=== PATIENT | female | born 1960 | race Caucasian/White ===

== ENCOUNTER 2017-09-28 20:53 | Observation (INO) ==
--- NOTE | 2017-09-28 20:57 | Emergency Department Note ---
Disposition Clinical Impression: Pneumonia Disposition: Admitted As Inpatient Condition: Good Referrals: Stacy Cruz, [facility] [Primary Care Provider] - Time of Disposition: 22:40 (dr Hernandez for dr Brown ar [facility]) SOB HPI - General Stated Complaint: hard to breath pain in R lung front and back Time Seen by Provider: 09/28/17 21:21 Source: patient Mode of arrival: ambulatory Limitations: no limitations Nursing Notes Reviewed: Yes Vital Signs Reviewed: Yes - History of Present Illness Pt Subjective Complaint: shortness of breath, cough, pain with inspiration, chest pain Onset (ago): day(s) (3) Context: recent illness Severity: severe Consistency/Duration: constant, gradually worsening Improves with: nothing Worsens with: exertion, movement, coughing, inspiration Known history of: COPD Associated symptoms: Reports: chest pain, pain with inspiration, fever, cough, wheezing, sputum production. Denies: orthopnea, lower extremity pain, polyuria , polydipsia, parasthesias, palpitations, hemoptysis, diaphoresis, nausea/ vomiting, syncope, abdominal pain Treatment prior to arrival: bronchodilator Cough present: Yes Cough Description: Involuntary, Productive, Strong, Rattling Cough Frequency: Intermittent Sputum production: Yes Sputum Amount: Small Sputum Color: Green - Related Data Home Medications Medication Instructions Recorded Confirmed Aspirin Enteric Coated [Aspirin EC] 81 mg PO DAILY 12/30/14 09/28/17 Escitalopram [Lexapro] 20 mg PO DAILY 12/30/14 09/28/17 Gabapentin [Neurontin] 1,200 mg PO TID 12/30/14 09/28/17 Rosuvastatin Calcium [Crestor] 10 mg PO HS 12/30/14 09/28/17 Zonisamide [Zonegran] 100 mg PO QAM 12/30/14 09/28/17 Zonisamide [Zonegran] 150 mg PO HS 12/30/14 09/28/17 risperiDONE [RisperDAL] 1 mg PO HS 12/30/14 09/28/17 Aclidinium [place] [Tudorza 1 puff IH BID 11/17/15 09/28/17 Pressair] Albuterol Sulfate [Ventolin Hfa] 2 puff IH Q4H PRN 11/17/15 09/28/17 Diclofenac Sodium [Voltaren] 1 appl TP QID PRN 11/17/15 09/28/17 Fluticasone/Salmeterol [Advair 1 puff IH BID 11/17/15 09/28/17 500-50 Diskus] Ipratropium/Albuterol Neb [Duoneb] 3 ml IH Q6HR 11/17/15 09/28/17 Lidocaine Patch [Lidoderm 5% patch] 1 patch TP DAILY PRN 11/17/15 09/28/17 Melatonin 10 mg PO HS PRN 11/17/15 09/28/17 Nitroglycerin [Nitrostat] 0.4 mg SL Q5M PRN 11/17/15 09/28/17 metFORMIN [Glucophage] 1,000 mg PO BIDWM 11/17/15 09/28/17 Esomeprazole Magnesium [Nexium] 40 mg PO DAILY 05/10/16 09/28/17 Buspirone HCl [Buspar] 20 mg PO BID 11/07/16 09/28/17 Calcium Polycarbophil [Fibercon] 625 mg PO QID 11/07/16 09/28/17 Docusate [Colace] 100 mg PO TID 11/07/16 09/28/17 Ergocalciferol (VITAMIN D2) 50,000 unit PO MO 11/07/16 09/28/17 [Vitamin D2] Vitamin B Complex [B Complex] 1 each PO DAILY 11/07/16 09/28/17 hydrOXYzine HCl [Hydroxyzine HCl] 50 mg PO TID PRN 11/07/16 09/28/17 Previous Rx's Medication Instructions Recorded Pramipexole Di-HCl [Pramipexole 0.125 mg PO QPM #0 11/09/16 Dihydrochloride] Albuterol Sulfate [Ventolin Hfa] 2 puff IH Q4-6H PRN #1 hfa.aer.ad 07/29/17 PredniSONE [Deltasone] 60 mg PO DAILY #15 tablet 07/29/17 Allergies Allergy/AdvReac Type Severity Reaction Status Date / Time amitriptyline Allergy Anaphylaxis Verified 09/28/17 21:16 ibuprofen Allergy See Verified 09/28/17 21:16 Comments meloxicam Allergy Difficulty Verified 09/28/17 21:16 Breathing methocarbamol [From Robaxin] Allergy Difficulty Verified 09/28/17 21:16 Breathing naproxen Allergy See Verified 09/28/17 21:16 Comments NSAIDS (Non-Steroidal AdvReac See Verified 09/28/17 21:16 Anti-Inflamma Comments sulfamethoxazole AdvReac Hives Verified 09/28/17 21:16 [From Bactrim] Temazepam AdvReac See Verified 09/28/17 21:16 Comments tramadol [From Ultram] AdvReac See Verified 09/28/17 21:16 Comments trimethoprim [From Bactrim] AdvReac Hives Verified 09/28/17 21:16 All systems ED: reviewed and negative except as stated. Review of Systems: As Per HPI Constitutional: Reports: fever. Denies: chills, weakness Eyes: Denies: eye pain, eye discharge ENT ED: Reports: congestion. Denies: ear pain, throat pain Cardiovascular: Reports: chest pain, dyspnea on exertion. Denies: palpitations , paroxysmal nocturnal dyspnea Respiratory: Reports: cough, dyspnea, wheezes, sputum production Gastrointestinal: Denies: abdominal pain, nausea, vomiting Genitourinary: Denies: urgency, dysuria Musculoskeletal: Denies: back pain, neck pain Integumentary: Denies: abrasion Neurological: Denies: headache Psychiatric: Denies: anxiety, depression Endocrine: Denies: fatigue Hematological/Lymphatic: Denies: easy bleeding Allergic/Immunologic: Denies: facial swelling Past Medical History - Past Medical History Attestation: Yes The following information was validated with the patient. 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 - Social History Smoking Status: Current every day smoker Smokeless Tobacco Status: No Alcohol use: Reports: none Drug use: Reports: none Physical Exam - General Limitations: no limitations General appearance: alert, in no apparent distress, anxious - Head Head exam: atraumatic, normocephalic, normal inspection - Eye Eye exam: Present: normal appearance, PERRL, EOMI - ENT ENT exam: normal exam, normal oropharynx, mucous membranes moist, TM's normal bilaterally, normal external ear exam - Neck Neck exam: Present: normal inspection, full ROM, trachea midline - Chest Chest inspection: Present: normal inspection, symmetric chest wall rise. Absent : tenderness - Respiratory Respiratory exam: Present: wheezes, prolonged expiratory phase, other (Course rhonchi large amount of phlegm) - Cardiovascular Cardiovascular exam: Present: regular rate, normal rhythm, normal heart sounds - Abdominal Exam Abdominal exam: Present: soft, Non-Tender, normal bowel sounds. Absent: mass, pulsatile mass - Expanded Upper Extremity Exam Shoulder exam: Present: normal inspection, full ROM Arm exam: Present: normal inspection, full ROM Elbow exam: Present: normal inspection, full ROM Forearm/Wrist exam: Present: normal inspection, full ROM Hand exam: Present: normal inspection, full ROM Vascular exam: Normal: capillary refill, radial pulse - Expanded Lower Extremity Exam Hip/Pelvis exam: Present: normal inspection, full ROM Upper leg exam: Present: normal inspection, full ROM Knee exam: Present: normal inspection, full ROM Lower leg exam: Present: normal inspection, full ROM Ankle exam: Present: normal inspection, full ROM Foot/toe exam: Present: normal inspection, full ROM Neurovascular/Tendon exam: Present: normal capillary refill, normal fine/light touch. Absent: motor deficit, sensory deficit, tendon deficit Gait: observed and normal - Back Exam Back exam: Present: normal inspection, full ROM. Absent: muscle spasm - Neurological Exam Neurological exam: Present: alert, oriented X3, CN II-XII intact, normal gait - Psychiatric Psychiatric exam: Present: normal affect, normal mood - Skin Skin exam: Present: warm, dry, intact, normal color Course Course Narrative: Patient was seen and examined laboratory data was ordered blood cultures and lactic acid chest x-ray EKG as well as an aerosol treatment patient did seem to bringing up a lot more green thick tenacious phlegm after the aerosol treatment patient was monitored patient did not have a D satting but continued to cough up large amounts of copious phlegm days a comes to the point of choking at times on the thickness and tenacity of it as result patient was admitted for observation due to the fact chest x-ray shows a early right lower lobe pneumonia and the patient seemed to be very comfortable with this will repeat CBC in the morning and make sure that her white count is coming down and see how she is feeling at that time we will continue with aerosol treatments shant spoke to Dr. Tapia who agreed Vital Signs Temperature 98 F 09/28/17 21:12 Pulse Rate 83 09/28/17 21:12 Respiratory Rate 18 09/28/17 21:12 Blood Pressure 119/73 09/28/17 21:12 O2 Sat by Pulse Oximetry 90 09/28/17 21:12 Temperature 98 F 09/28/17 21:12 Pulse Rate 83 09/28/17 21:12 Respiratory Rate 18 09/28/17 21:12 Blood Pressure 119/73 09/28/17 21:12 O2 Sat by Pulse Oximetry 90 09/28/17 21:12 Oxygen Delivery Oxygen Delivery Room Air Shortness of Breath/Dyspnea - Differential Diagnosis Likely: acute exacerbation of chronic obstructive airways disease, pneumonia - Medical Records Medical records reviewed: Yes I reviewed the patient's medical records. - Lab Data Lab results reviewed: Yes I reviewed the patient's lab results. Result diagrams: 09/28/17 21:45 09/28/17 21:45 Lab Results 09/28/17 09/28/17 09/28/17 Range/Units 21:45 21:45 21:45 WBC 12.1 H (4.3-11.1) K/mcL RBC 4.58 (3.82-4.97) M/mcL Hgb 14.2 (11.5-15.4) g/dL Hct 43.1 (35.3-44.9) % MCV 94.1 (83.0-100.0) fL MCH 31.0 (28.0-33.3) pg MCHC 32.9 (31.6-35.5) g/dL RDW 13.2 (11.5-14.5) % Plt Count 232 (140-400) K/mcL MPV 9.3 L (9.4-12.4) fL Immature Gran % 0.2 (0-4) % Seg Neutrophils % 64.4 % Lymphocytes % 23.0 % Monocytes % 9.5 % Eosinophils % 2.3 % Basophils % 0.6 % Neutrophils # 7.8 (1.6-8.9) K/mcL Lymphocytes # 2.8 (0.6-4.6) K/mcL Monocytes # 1.2 (0.0-1.3) K/mcL Eosinophils # 0.3 (0.0-0.6) K/mcL Basophils # 0.1 (0.0-0.2) K/mcL PT 11.6 (9.4-12.1) Seconds INR 1.0 APTT 26.5 (26.0-36.0) Seconds Sodium 137 (136-145) mEq/L Potassium 4.2 (3.5-5.1) mEq/L Chloride 104 (98-107) mEq/L Carbon Dioxide 29 (23-29) mEq/L BUN 11 (6-20) mg/dL Creatinine 0.77 (0.60-1.20) mg/dL Est GFR ( Amer) > 60 (> 60) Est GFR (Non-Af Amer) > 60 (> 60) BUN/Creatinine Ratio 14 (6-26) Glucose 116 H (70-105) mg/dL Calculated Osmolality 284 (280-300) Lactic Acid (0.5-2.2) mmol/L Calcium 9.2 (8.6-10.3) mg/dL Troponin I < 0.03 (< 0.04) ng/mL 09/28/17 Range/Units 21:45 WBC (4.3-11.1) K/mcL RBC (3.82-4.97) M/mcL Hgb (11.5-15.4) g/dL Hct (35.3-44.9) % MCV (83.0-100.0) fL MCH (28.0-33.3) pg MCHC (31.6-35.5) g/dL RDW (11.5-14.5) % Plt Count (140-400) K/mcL MPV (9.4-12.4) fL Immature Gran % (0-4) % Seg Neutrophils % % Lymphocytes % % Monocytes % % Eosinophils % % Basophils % % Neutrophils # (1.6-8.9) K/mcL Lymphocytes # (0.6-4.6) K/mcL Monocytes # (0.0-1.3) K/mcL Eosinophils # (0.0-0.6) K/mcL Basophils # (0.0-0.2) K/mcL PT (9.4-12.1) Seconds INR APTT (26.0-36.0) Seconds Sodium (136-145) mEq/L Potassium (3.5-5.1) mEq/L Chloride (98-107) mEq/L Carbon Dioxide (23-29) mEq/L BUN (6-20) mg/dL Creatinine (0.60-1.20) mg/dL Est GFR ( Amer) (> 60) Est GFR (Non-Af Amer) (> 60) BUN/Creatinine Ratio (6-26) Glucose (70-105) mg/dL Calculated Osmolality (280-300) Lactic Acid 1.0 (0.5-2.2) mmol/L Calcium (8.6-10.3) mg/dL Troponin I (< 0.04) ng/mL - Radiology Data Radiology results reviewed: Yes I reviewed the patient's radiology results. ITS Impressions Chest X-Ray 09/28/17 21:20 IMPRESSION: Nonspecific right infrahilar opacity may represent atelectasis with pneumonia felt to be less likely but not excluded. D/ / 09/28/2017 22:25:22 Stephen Ireland MD / delia Interpreting Provider: Stephen Ireland MD - EKG Data EKG attestation: Yes I reviewed and interpreted this EKG. EKG results narrative: Sinus rhythm nonspecific T-wave [place] 182 QRS 80 QT 326 axis -21 with a heart rate of 82 Critical Care Time Critical Care Time: No
[2017-09-28] MEDS ORDERED: *HR* HYDROcodone/Acet 5/325 mg TABLET PO ONE (21:01)
[2017-09-28] MEDS ORDERED: Ipratropium/Albuterol Neb 3 ML IH ONE (21:20)
[2017-09-28] MEDS ORDERED: Azithromycin 500 MG in D5% in Water 250 ML IVPB ONE (21:20)
[2017-09-28] MEDS ORDERED: 0.9 % Sodium Chloride 1,000 ML IVC SCH (21:30)
[2017-09-28 21:52] LABS: Basophils # 0.1 K/mcL (0.0-0.2); Basophils % 0.6 %; Eosinophils # 0.3 K/mcL (0.0-0.6); Eosinophils % 2.3 %; Hematocrit 43.1 % (35.3-44.9); Hemoglobin 14.2 g/dL (11.5-15.4); Immature Granulocytes % 0.2 % (0-4); Lymphocytes # 2.8 K/mcL (0.6-4.6); Mean Corpuscular HGB Conc 32.9 g/dL (31.6-35.5); Mean Corpuscular Volume 94.1 fL (83.0-100.0); Mean Platelet Volume 9.3 fL (9.4-12.4); Monocytes # 1.2 K/mcL (0.0-1.3); Monocytes % 9.5 %; Neutrophils # 7.8 K/mcL (1.6-8.9); Platelet Count 232 K/mcL (140-400); Red Blood Count 4.58 M/mcL (3.82-4.97); Red Cell Distribution Width 13.2 % (11.5-14.5); Segmented Neutrophils % 64.4 %
[2017-09-28 21:57] LABS: Prothrombin Time 11.6 Seconds (9.4-12.1)
[2017-09-28 22:00] LABS: Activated Partial Thrombo Time 26.5 Seconds (26.0-36.0)
[2017-09-28 22:07] LABS: Troponin I < 0.03 ng/mL (< 0.04)
[2017-09-28 22:08] LABS: BUN/Creatinine Ratio 14 (6-26); Blood Urea Nitrogen 11 mg/dL (6-20); Calcium 9.2 mg/dL (8.6-10.3); Carbon Dioxide 29 mEq/L (23-29); Chloride 104 mEq/L (98-107); Glucose 116 mg/dL (70-105); Osmolality,Calculated 284 (280-300); Potassium 4.2 mEq/L (3.5-5.1); Sodium 137 mEq/L (136-145); eGFR For Non-African Americans > 60 (> 60)
[2017-09-28] MEDS ORDERED: Dextrose Gel 15 GM/37.5 ML TUBE PO PRN ×2 (23:22)
[2017-09-28] MEDS ORDERED: *HR* Dextrose 50 % in Water (Syg) 50 ML SYRINGE IVP PRN (23:22)
[2017-09-28] MEDS ORDERED: Melatonin 3 MG TABLET PO PRN (23:22)
[2017-09-28] MEDS ORDERED: Naloxone 0.4 MG/ML INJ IVP PRN (23:22)
[2017-09-28] MEDS ORDERED: (Diclofenac Sodium [Voltaren] 1 APPL) TP PRN (23:22)
[2017-09-28] MEDS ORDERED: Nitroglycerin 0.4 MG TAB.SUBL SL PRN (23:22)
[2017-09-28] MEDS ORDERED: D5% in Water 1,000 ML IVC PRN (23:22)
[2017-09-28] MEDS ORDERED: Acetaminophen 325 MG TABLET PO PRN (23:22)
[2017-09-28] MEDS ORDERED: hydrOXYzine pamoate 25 MG CAPSULE PO PRN (23:22)
[2017-09-28] MEDS: 0.9 % Sodium Chloride 1,000 ML IVC SCH (23:45)
[2017-09-29] MEDS: Ipratropium/Albuterol Neb 3 ML IH SCH ×4 (01:05→17:40)
[2017-09-29] MEDS: 0.9 % Sodium Chloride 1,000 ML IVC SCH ×2 (07:05→15:37)
[2017-09-29] MEDS: *HR* Enoxaparin 40 MG/0.4 ML SYRINGE SQ SCH (07:05)
--- NOTE | 2017-09-29 08:30 | Internal Med History&Physical ---
Date of Encounter: 09/29/17 Time of Encounter: 08:30 Assessment and Plan (1) Pneumonia Current visit: Yes Status: Acute She is here for IV antibiotics he is on Rocephin and Zithromax will continue duo nebs oxygen. Qualifiers: Pneumonia type: due to unspecified organism Laterality: right Lung location: lower lobe of lung Qualified Code(s): J18.1 - Lobar pneumonia, unspecified organism (2) COPD exacerbation Current visit: Yes Status: Acute Added Solu-Medrol continue duo nebs continue oxygen wean as tolerated. Pretty- harsh and loud rattly cough she is wheezing with minimal exertion she is not ready to discharge home (3) Diabetes mellitus Current visit: No Status: Chronic Qualifiers: Diabetes mellitus type: type 2 Diabetes mellitus terminal gauger insulin use: without penitentiary use Diabetes mellitus complication status: without complication Qualified Code(s): E11.9 - Type 2 diabetes mellitus without complications (4) Fibromyalgia Current visit: No Status: Chronic Will continue homerun. We will continue to follow she did get some [place] continue to follow this on per chart review she has just been discontinued off her oxycodone for pain management due to the fact that her drug screen was going to be positive for hydrocodone and will not send home with any further medication. (5) Seizure disorder Current visit: Yes Status: Chronic Will continue home medication she has 2 shunts placed on she says she has not had any seizures in quite some time. Continue to follow (6) Hyperlipidemia Current visit: Yes Status: Chronic Will continue home medication. (7) Hypertension Current visit: Yes Status: Chronic Will continue home medication Qualifiers: Hypertension type: essential hypertension Qualified Code(s): I10 - Essential (primary) hypertension (8) Atypical chest pain Current visit: Yes Status: Acute Negative she is on telemetry she most likely will require outpatient stress test given the fact that she has had a history of cocaine abuse. That she is a diabetic. Hypertension hyperlipidemia and a smoker (9) DVT prophylaxis Current visit: Yes Status: Acute She is on Lovenox for this Internal Medicine - H&P: HPI Chief complaint: sob and lungs hurt Admitted From: Home Plans for Post Hospital Care: Home History of present illness: Ms. Conde is a 57 year old female Past medical history of COPD presents to the emergency room after she had several day onset of cough with thick green sputum wheezing shortness of breath and her lung started hurting and started on the right side and cut and wrapped around her back she was struggling to breathe she came into the emergency room she had dual nebs with some improvement but she still had thick yellow sputum. having significant shortness of breath. Her chest x-ray showed infiltrate she was brought in for pneumonia she was given Zithromax and Rocephin she feels a little bit better but still has rattling and coughing. She still is short of breath she is having difficulty up to the restroom. She is not normally on oxygen at home. She is short of breath with exertion she is diaphoretic with exertion. She did have some diarrhea. Past Med Surg Social Fam HX - Past Medical History Medical history: asthma, cancer (Cervical), COPD, CVA, diabetes, fibromyalgia, GERD, hyperlipidemia, hypertension, seizures, TIA, other (Pseudotumor, seizure disorder history of drug addiction nephrolithiasis irritable bowel pseudoseizures, cervical disc disease) Additional medical history: cervical cancer Psychiatric history: anxiety, depression, prior suicide attempt - Past Surgical History Surgical History: cholecystectomy, herniorrhaphy (Left inguinal and umbilical), hysterectomy, knee replacement, orthopedic, other, ALBINA/BSO, other (2 brain shunts him a hemorrhoid, lumbar laminectomy, tubal ligation) Additional surgical history: brain sugery r/t tumors with shunt placement - Social History Smoking Status: Current every day smoker Smokeless Tobacco Status: No Alcohol use: none (She denies but her chart has documentation of a history of alcohol abuse) Drug use: none (But her chart states that she has a history of cocaine marijuana addiction and that she started commit suicide. And alcohol abuse.) - Family History Mother Living Status: Cause of : brain aneurysm, Hx Family Cardiac Disorders: Yes Hx Family Cancer: Yes Hx Family Endocrine Disorder: Yes (DM, thyroid) Hx Family Neuromuscular Disorders: Yes (cva) Father Living Status: Hx Family Respiratory Disorders: Yes (COPD) Hx Family Cancer: Yes (Prostate CA) Hx Family GI Disorders: Yes (: colonPolyps) Hx Family Endocrine Disorder: Yes (DM) Daughter Hx Family Medical Disorders: Yes (Von Willebrand's disease) Internal Medicine - H&P: Meds Aspirin Enteric Coated [Aspirin EC] 81 mg PO DAILY 12/30/14 [History] Escitalopram [Lexapro] 20 mg PO DAILY 12/30/14 [History] Gabapentin [Neurontin] 1,200 mg PO TID 12/30/14 [History] Rosuvastatin Calcium [Crestor] 10 mg PO HS 12/30/14 [History] Zonisamide [Zonegran] 100 mg PO QAM 12/30/14 [History] Zonisamide [Zonegran] 150 mg PO HS 12/30/14 [History] risperiDONE [RisperDAL] 1 mg PO HS 12/30/14 [History] Aclidinium [place] [Tudorza Pressair] 1 puff IH BID 11/17/15 [History] Albuterol Sulfate [Ventolin Hfa] 2 puff IH Q4H PRN 11/17/15 [History] Diclofenac Sodium [Voltaren] 1 appl TP QID PRN 11/17/15 [History] Fluticasone/Salmeterol [Advair 500-50 Diskus] 1 puff IH BID 11/17/15 [History] Ipratropium/Albuterol Neb [Duoneb] 3 ml IH Q6HR 11/17/15 [History] Lidocaine Patch [Lidoderm 5% patch] 1 patch TP DAILY PRN 11/17/15 [History] Melatonin 10 mg PO HS PRN 11/17/15 [History] Nitroglycerin [Nitrostat] 0.4 mg SL Q5M PRN 11/17/15 [History] metFORMIN [Glucophage] 1,000 mg PO BIDWM 11/17/15 [History] Esomeprazole Magnesium [Nexium] 40 mg PO DAILY 05/10/16 [History] Buspirone HCl [Buspar] 20 mg PO BID 11/07/16 [History] Calcium Polycarbophil [Fibercon] 625 mg PO QID 11/07/16 [History] Docusate [Colace] 100 mg PO TID 11/07/16 [History] Ergocalciferol (VITAMIN D2) [Vitamin D2] 50,000 unit PO MO 11/07/16 [History] Vitamin B Complex [B Complex] 1 each PO DAILY 11/07/16 [History] hydrOXYzine HCl [Hydroxyzine HCl] 50 mg PO TID PRN 11/07/16 [History] Pramipexole Di-HCl [Pramipexole Dihydrochloride] 0.125 mg PO QPM #0 11/09/16 [Rx ] Albuterol Sulfate [Ventolin Hfa] 2 puff IH Q4-6H PRN #1 hfa.aer.ad 07/29/17 [Rx] PredniSONE [Deltasone] 60 mg PO DAILY #15 tablet 07/29/17 [Rx] 3 Allergy/AdvReac Type Severity Reaction Status Date / Time amitriptyline Allergy Anaphylaxis Verified 09/28/17 21:16 ibuprofen Allergy See Verified 09/28/17 21:16 Comments meloxicam Allergy Difficulty Verified 09/28/17 21:16 Breathing methocarbamol [From Robaxin] Allergy Difficulty Verified 09/28/17 21:16 Breathing naproxen Allergy See Verified 09/28/17 21:16 Comments NSAIDS (Non-Steroidal AdvReac See Verified 09/28/17 21:16 Anti-Inflamma Comments sulfamethoxazole AdvReac Hives Verified 09/28/17 21:16 [From Bactrim] Temazepam AdvReac See Verified 09/28/17 21:16 Comments tramadol [From Ultram] AdvReac See Verified 09/28/17 21:16 Comments trimethoprim [From Bactrim] AdvReac Hives Verified 09/28/17 21:16 All Systems PM: A 10-system review of systems was performed and is negative for pertinent findings except as documented above in the HPI. - Constitutional Constitutional: fatigue, no chills, no fever(s), no night sweats, no weight gain - EENT Eyes: no change in vision Nose, mouth and throat: nasal congestion, no sore throat - Cardiovascular Cardiovascular ROS IM: as per HPI, chest pain, dyspnea, no palpitations - Respiratory Respiratory: cough, dyspnea, wheezing, chest congestion, excessive phlegm production, no hemoptysis - Gastrointestinal Gastrointestinal: diarrhea, nausea, no abdominal pain, no constipation, no melena, no vomiting - Genitourinary Genitourinary: no dysuria, no hematuria - Integumentary Integumentary IM: no pruritus, no rash - Neurological Neurological ROS: convulsions (She has not had any seizures for months), headache(s) (Chronic) - Constitutional Vitals: Temp Pulse Resp BP Pulse Ox 98.2 F 75 16 118/79 93 09/29/17 07:33 09/29/17 07:33 09/29/17 07:33 09/29/17 07:33 09/29/17 07:33 General appearance: Present: mild distress (When she was around in bed she has a pretty significant cough.), A&O X 3, obese - Head Head exam: Present: atraumatic - Eye Eye exam: Present: EOMI - Neck Neck exam general surgery: Present: supple, trachea midline. Absent: lymphadenopathy - Expanded Neck Exam Neck exam: Absent: carotid bruit - Respiratory Respiratory exam: Present: decreased breath sounds, prolonged expiratory phase, rales, rhonchi, wheezes - Cardiovascular Cardiovascular exam: Present: RRR, +S2. Absent: +S1, systolic murmur - GI/Abdominal GI/Abdominal exam: Present: normal bowel sounds, soft, no peritoneal signs. Absent: distended, guarding, mass, tenderness - Extremities Exam Extremities exam: Present: normal capillary refill, warm. Absent: pedal edema - Skin Skin exam: Present: dry, rash Internal Med - H&P Results - Labs CBC & Chem 7: 09/29/17 09:00 09/28/17 21:45 Labs: Cardiac Enzymes 09/29/17 Range/Units 03:10 Troponin I < 0.03 (< 0.04) ng/mL
[2017-09-29] MEDS ORDERED: predniSONE 20 MG TABLET PO SCH (09:00)
[2017-09-29] MEDS: TUDORZA PRESSAIR IH SCH ×2 (09:09→22:04)
[2017-09-29] MEDS: *HR* Metformin 500 MG TABLET PO SCH ×2 (09:26→15:44)
[2017-09-29] MEDS: Gabapentin 400 MG CAPSULE PO SCH ×3 (09:26→22:01)
[2017-09-29] MEDS: Aspirin Enteric Coated 81 MG Tablet PO SCH (09:27)
[2017-09-29] MEDS: Vitamin B Complex/Vit C/Vit E 1 EACH TABLET PO SCH (09:27)
[2017-09-29] MEDS: cefTRIAXone 1,000 MG in Water for inj. (sterile) 20 ML 10 ML IVP SCH (09:27)
[2017-09-29] MEDS: Azithromycin 500 MG in D5% in Water 250 ML IVPB SCH (09:27)
[2017-09-29 09:32] LABS: Hematocrit 41.2 % (35.3-44.9); Hemoglobin 13.4 g/dL (11.5-15.4); Mean Corpuscular HGB Conc 32.5 g/dL (31.6-35.5); Mean Corpuscular Hemoglobin 30.6 pg (28.0-33.3); Mean Corpuscular Volume 94.1 fL (83.0-100.0); Mean Platelet Volume 9.6 fL (9.4-12.4); Platelet Count 235 K/mcL (140-400); Red Blood Count 4.38 M/mcL (3.82-4.97); Red Cell Distribution Width 13.2 % (11.5-14.5)
[2017-09-29] MEDS: Budesonide/Formoterol 160/4.5 1 PUFF INH IH SCH ×2 (09:33→22:02)
[2017-09-29] MEDS: Insulin LISPRO 300 UNITS/3 ML VIAL SQ SCH ×3 (09:38→17:48)
--- NOTE | 2017-09-29 15:37 | Electrocardiograph Report ---
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
[2017-09-29] MEDS: methylPREDNISolone 125 MG/2 ML VIAL IVP SCH (17:39)
[2017-09-29] MEDS: *HR* HYDROcodone/Acet 5/325 mg TABLET PO PRN (17:42)
[2017-09-29] MEDS ORDERED: risperiDONE 1 MG TABLET PO SCH (21:00)
[2017-09-30] MEDS: 0.9 % Sodium Chloride 1,000 ML IVC SCH ×3 (00:05→16:28)
[2017-09-30] MEDS: methylPREDNISolone 125 MG/2 ML VIAL IVP SCH (06:01)
[2017-09-30] MEDS: *HR* Enoxaparin 40 MG/0.4 ML SYRINGE SQ SCH (06:02)
[2017-09-30] MEDS: Ipratropium/Albuterol Neb 3 ML IH SCH ×3 (06:03→15:05)
[2017-09-30] MEDS: Insulin LISPRO 300 UNITS/3 ML VIAL SQ SCH ×3 (07:47→16:30)
[2017-09-30] MEDS: Aspirin Enteric Coated 81 MG Tablet PO SCH (09:24)
[2017-09-30] MEDS: *HR* Metformin 500 MG TABLET PO SCH ×2 (09:24→16:30)
[2017-09-30] MEDS: Vitamin B Complex/Vit C/Vit E 1 EACH TABLET PO SCH (09:25)
[2017-09-30] MEDS: Gabapentin 400 MG CAPSULE PO SCH ×2 (09:26→15:04)
[2017-09-30] MEDS: *HR* HYDROcodone/Acet 5/325 mg TABLET PO PRN (09:34)
[2017-09-30] MEDS: Azithromycin 500 MG in D5% in Water 250 ML IVPB SCH (09:35)
--- NOTE | 2017-09-30 11:03 | Internal Med Progress Note ---
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 insulin use: without terminal operations manager use Diabetes mellitus complication status: without complication Qualified Code(s): E11.9 - Type 2 diabetes mellitus without complications (4) Fibromyalgia Current Visit: No Status: Chronic (5) Seizure disorder Current Visit: Yes Status: Chronic (6) Hyperlipidemia Current Visit: Yes Status: Chronic (7) Hypertension Current Visit: Yes Status: Chronic Qualifiers: Hypertension type: essential hypertension Qualified Code(s): I10 - Essential (primary) hypertension (8) Atypical chest pain Current Visit: Yes Status: Acute (9) DVT prophylaxis Current Visit: Yes Status: Acute - Constitutional Vitals: Temp Pulse Resp BP Pulse Ox 97.6 F 77 14 129/65 97 09/30/17 07:46 09/30/17 07:46 09/30/17 07:46 09/30/17 07:46 09/30/17 07:46 General appearance: Present: mild distress (When she was around in bed she has a pretty significant cough.), A&O X 3, obese Internal Medicine: Result - Labs CBC & Chem 7: 09/29/17 09:00 09/28/17 21:45 - ABG Interpretation ABG results: PT/INR, D-dimer PT 11.6 Seconds (9.4-12.1) 09/28/17 21:45 Consult Discharge Plan - Plan
[2017-09-30] MEDS: TUDORZA PRESSAIR IH SCH (12:14)
[2017-09-30] MEDS: Budesonide/Formoterol 160/4.5 1 PUFF INH IH SCH (12:43)
[2017-09-30] MEDS: cefTRIAXone 1,000 MG in Water for inj. (sterile) 20 ML 10 ML IVP SCH (12:44)
--- NOTE | 2017-09-30 16:30 | Discharge Summary ---
- NOTES TO OUTPATIENT PROVIDER Notes to Outpatient Provider: she needs an outpatient stress test. the PA process has been started at the office Date of Encounter: 09/30/17 Time of Encounter: 10:50 - Discharge Diagnosis (1) Pneumonia Priority: Primary Status: Acute Comments: She was initially on oxygen she was weaned to room air she was able to ambulate in the hallway she had a significant improvement in her condition from the first date of the second day she was sent home on Augmentin and Zithromax with the prednisone taper she ordered he had and albuterol at home. Qualifiers: Pneumonia type: due to unspecified organism Laterality: right Lung location: lower lobe of lung Qualified Code(s): J18.1 - Lobar pneumonia, unspecified organism (2) COPD exacerbation Priority: Secondary Status: Acute Comments: She was sent home on a prednisone taper she was instructed not to smoke. She is scheduled to follow-up in the office next week. She has duonebs and her albuterol at home (3) Diabetes mellitus Priority: Secondary Status: Chronic Comments: Will continue her on metformin Qualifiers: Diabetes mellitus type: type 2 Diabetes mellitus care home insulin use: without intermodal customer service use Diabetes mellitus complication status: without complication Qualified Code(s): E11.9 - Type 2 diabetes mellitus without complications (4) Fibromyalgia Priority: Secondary Status: Chronic Comments: I do not make any changes to her gabapentin (5) Seizure disorder Priority: Secondary Status: Chronic (6) Hyperlipidemia Priority: Secondary Status: Chronic Comments: Will continue her home medication Qualifiers: Hyperlipidemia type: unspecified Qualified Code(s): E78.5 - Hyperlipidemia , unspecified (7) Hypertension Priority: Secondary Status: Chronic Comments: she is stable on her home medication Qualifiers: Hypertension type: essential hypertension Qualified Code(s): I10 - Essential (primary) hypertension (8) Atypical chest pain Priority: Secondary Status: Acute Comments: She is scheduled for an outpatient stress test. With her history of smoking diabetes hypertension hyperlipidemia. And prior drug use (9) DVT prophylaxis Priority: Secondary Status: Acute Comments: She was on Lovenox she was here Hospital course: Ms. Conde is a 57 year old female Who came in for a left lower lobe pneumonia and a COPD exacerbation she was started on Rocephin and Zithromax duonebs oxygen Solu-Medrol. She did respond well and her significant wheezing had cleared up by the second day. She was weaned off oxygen she was ambulated in the [place]ryan she did well with that. She did have some chest pain. With her history of diabetes hypertension hyperlipidemia smoking and drug use. We will go ahead and order an outpatient stress test for her she does has significant cardiovascular risk factors. She had negative troponins 3 she was on telemetry and no arrhythmias were detected. She was discharged home in stable condition she was instructed not to smoke but she probably will continue to do that. Her blood pressure was nonissue this admission - Time Spent with Patient Total time spent providing and/or coordinating discharge services: - Discharge Medications Prescriptions: Amoxicillin/Clavulanate [Augmentin] 875 mg PO BIDWM #14 tablet Azithromycin [Zithromax] 250 mg PO Q24H #4 tablet predniSONE [PredniSONE] 20 mg PO DAILY #20 tablet Home Medications: Aspirin Enteric Coated [Aspirin EC] 81 mg PO DAILY 12/30/14 [History] Escitalopram [Lexapro] 20 mg PO DAILY 12/30/14 [History] Gabapentin [Neurontin] 1,200 mg PO TID 12/30/14 [History] Rosuvastatin Calcium [Crestor] 10 mg PO HS 12/30/14 [History] Zonisamide [Zonegran] 100 mg PO QAM 12/30/14 [History] Zonisamide [Zonegran] 150 mg PO HS 12/30/14 [History] risperiDONE [RisperDAL] 1 mg PO HS 12/30/14 [History] Aclidinium Lovejoy [Tudorza Pressair] 1 puff IH BID 11/17/15 [History] Albuterol Sulfate [Ventolin Hfa] 2 puff IH Q4H PRN 11/17/15 [History] Diclofenac Sodium [Voltaren] 1 appl TP QID PRN 11/17/15 [History] Fluticasone/Salmeterol [Advair 500-50 Diskus] 1 puff IH BID 11/17/15 [History] Ipratropium/Albuterol Neb [Duoneb] 3 ml IH Q6HR 11/17/15 [History] Lidocaine Patch [Lidoderm 5% patch] 1 patch TP DAILY PRN 11/17/15 [History] Melatonin 10 mg PO HS PRN 11/17/15 [History] Nitroglycerin [Nitrostat] 0.4 mg SL Q5M PRN 11/17/15 [History] metFORMIN [Glucophage] 1,000 mg PO BIDWM 11/17/15 [History] Esomeprazole Magnesium [Nexium] 40 mg PO DAILY 05/10/16 [History] Buspirone HCl [Buspar] 20 mg PO BID 11/07/16 [History] Calcium Polycarbophil [Fibercon] 625 mg PO QID 11/07/16 [History] Docusate [Colace] 100 mg PO TID 11/07/16 [History] Ergocalciferol (VITAMIN D2) [Vitamin D2] 50,000 unit PO MO 11/07/16 [History] Vitamin B Complex [B Complex] 1 each PO DAILY 11/07/16 [History] hydrOXYzine HCl [Hydroxyzine HCl] 50 mg PO TID PRN 11/07/16 [History] Pramipexole Di-HCl [Pramipexole Dihydrochloride] 0.125 mg PO QPM #0 11/09/16 [Rx ] Albuterol Sulfate [Ventolin Hfa] 2 puff IH Q4-6H PRN #1 hfa.aer.ad 07/29/17 [Rx] PredniSONE [Deltasone] 60 mg PO DAILY #15 tablet 07/29/17 [Rx] Acetaminophen [Tylenol] 650 mg PO Q6HR PRN tablet 09/30/17 [Rx] Amoxicillin/Clavulanate [Augmentin] 875 mg PO BIDWM #14 tablet 09/30/17 [Rx] Azithromycin [Zithromax] 250 mg PO Q24H #4 tablet 09/30/17 [Rx] Docusate [Colace] 100 mg PO TID capsule 09/30/17 [Rx] predniSONE [PredniSONE] 20 mg PO DAILY #20 tablet 09/30/17 [Rx] Allergies/Adverse Reactions: 3 Allergy/AdvReac Type Severity Reaction Status Date / Time amitriptyline Allergy Anaphylaxis Verified 09/28/17 21:16 ibuprofen Allergy See Verified 09/28/17 21:16 Comments meloxicam Allergy Difficulty Verified 09/28/17 21:16 Breathing methocarbamol [From Robaxin] Allergy Difficulty Verified 09/28/17 21:16 Breathing naproxen Allergy See Verified 09/28/17 21:16 Comments NSAIDS (Non-Steroidal AdvReac See Verified 09/28/17 21:16 Anti-Inflamma Comments sulfamethoxazole AdvReac Hives Verified 09/28/17 21:16 [From Bactrim] Temazepam AdvReac See Verified 09/28/17 21:16 Comments tramadol [From Ultram] AdvReac See Verified 09/28/17 21:16 Comments trimethoprim [From Bactrim] AdvReac Hives Verified 09/28/17 21:16 Date of admission: 09/28/17 22:56 Primary care physician: Stacy Cruz CNP - Constitutional Vitals: Temp Pulse Resp BP Pulse Ox 98.4 F 77 16 130/82 94 09/30/17 12:00 09/30/17 12:00 09/30/17 12:00 09/30/17 12:00 09/30/17 14:29 General appearance: Present: mild distress (When she was around in bed she has a pretty significant cough.), A&O X 3, obese - Head Head exam: Present: atraumatic, normocephalic - Neck Neck exam general surgery: Present: supple, trachea midline. Absent: lymphadenopathy - Respiratory Respiratory exam: Present: prolonged expiratory phase, rhonchi (Left lower lobe otherwise clear her wheezing has improved significantly). Absent: respiratory distress - Cardiovascular Cardiovascular exam: Present: RRR, +S1, +S2. Absent: systolic murmur - GI/Abdominal GI/Abdominal exam: Present: normal bowel sounds, soft, no peritoneal signs. Absent: guarding, tenderness - Extremities Exam Extremities exam: Present: normal capillary refill. Absent: pedal edema - Skin Skin exam: Present: dry, warm. Absent: rash - Patient Status Disposition: Home, Self-Care Condition: Good Functional capacity at discharge: independent ambulation Overall status at discharge: patient is progressing back to baseline - Discharge Instructions Instructions: Chest Pain (DC), Diabetes Mellitus Type 2 in Adults (DC), Chronic Obstructive Pulmonary Disease (DC), Chronic Hypertension (DC), Pneumonia (DC) Follow Up With: Stacy Cruz CNP [Primary Care Provider] - 10/07/17 9:15 am Forms: ED Satisfaction Letter, Work/School Release - Diet and Activity Activity: increase activity as tolerated Diet: diabetic diet, low fat, low cholesterol
[2017-09-30 16:34] VITALS: BP 121/75
== END 2017-09-30 17:20 | disposition home or self-care (01) ==
LOC: INPGRE 20:53 → EMEROOGRE 20:53 → INPGRE 23:16
PROVIDERS: ATTEND Family Medicine

== ENCOUNTER 2021-09-16 22:15 | Inpatient (IN) ==
[2021-09-16] MEDS ORDERED: 0.9 % Sodium Chloride 1,000 ML IVC ONE (22:48)
[2021-09-16] MEDS ORDERED: Ipratropium/Albuterol Neb 3 ML IH ONE (22:49)
[2021-09-16] MEDS ORDERED: methylPREDNISolone 125 MG/2 ML VIAL IVP ONE (22:49)
[2021-09-16] MEDS ORDERED: Acetaminophen 325 MG TABLET PO ONE (22:50)
[2021-09-16 22:52] LABS: ABG Base Excess 2 mEq/L (-2 to 3); ABG HCO3 31 mEq/L (21-27); ABG Oxygen Saturation 91 % (95-98); ABG PCO2 72 mmHg (35-45); ABG PH 7.25 pH Units (7.32-7.45); ABG PO2 75 mmHg (85-104); ABG TCO2 34 mEq/L (20-26)
[2021-09-16 23:12] LABS: Basophils # 0.1 K/mcL (0.0-0.2); Basophils % 1.1 %; Eosinophils # 0.4 K/mcL (0.0-0.6); Eosinophils % 4.1 %; Hematocrit 42.4 % (35.3-44.9); Hemoglobin 13.5 g/dL (11.5-15.4); Immature Granulocytes % 0.7 % (0-4); Mean Corpuscular HGB Conc 31.8 g/dL (31.6-35.5); Mean Corpuscular Hemoglobin 30.7 pg (28.0-33.3); Mean Corpuscular Volume 96.4 fL (83.0-100.0); Mean Platelet Volume 9.5 fL (9.4-12.4); Monocytes # 0.5 K/mcL (0.0-1.3); Monocytes % 5.6 %; Neutrophils # 5.9 K/mcL (1.6-8.9); Platelet Count 245 K/mcL (140-400); Red Cell Distribution Width 14.2 % (11.5-14.5); Segmented Neutrophils % 66.5 %; White Blood Count 8.9 K/mcL (4.3-11.1)
[2021-09-16 23:18] LABS: Prothrombin Time 11.2 Seconds (9.4-12.1)
[2021-09-16 23:20] LABS: Activated Partial Thrombo Time 31.2 Seconds (26.0-36.0)
[2021-09-16 23:25] LABS: Bilirubin,Urine Negative (Negative); Blood,Urine Trace-intact (Negative); Clarity,Urine Clear (Clear); Color,Urine Yellow (Yellow); Glucose,Urine (UA) Normal (Normal); Ketones,Urine Negative (Negative); Leukocyte Esterase,Urine Negative (Negative); Nitrite,Urine Negative (Negative); Protein,Urine Negative (Neg-Trace); Specific Gravity,Urine 1.025 (1.010-1.025); Urobilinogen,Urine Normal (Normal)
[2021-09-16 23:26] LABS: RBC,Urine 0-3 per hpf (0-3); WBC,Urine 0-3 per hpf (0-3)
[2021-09-16 23:28] LABS: Troponin I < 0.03 ng/mL (< 0.04)
[2021-09-16 23:59] LABS: Alanine Aminotransferase 15 Units/L (7-52); Albumin 3.9 g/dL (3.5-5.7); Albumin/Globulin Ratio 1.6 (1.1-2.2); Alkaline Phosphatase 72 Units/L (34-104); Aspartate Amino Transferase 17 Units/L (13-39); BUN/Creatinine Ratio 15 (6-26); Bilirubin,Direct 0.1 mg/dL (0.0-0.2); Bilirubin,Indirect 0.3 mg/dL (0.0-1.0); Bilirubin,Total 0.4 mg/dL (0.3-1.0); Blood Urea Nitrogen 11 mg/dL (8-23); Calcium 9.4 mg/dL (8.6-10.3); Carbon Dioxide 37 mEq/L (23-29); Chloride 102 mEq/L (98-107); Globulin 2.4 g/dL (2.4-3.5); Glucose 138 mg/dL (70-105); Magnesium 1.8 mg/dL (1.6-2.6); Osmolality,Calculated 290 (280-300); Phosphorous 3.2 mg/dL (2.7-4.5); Potassium 4.6 mEq/L (3.5-5.1); Sodium 139 mEq/L (136-145); Total Protein 6.3 g/dL (6.4-8.9); eGFR For African Americans > 60 (> 60); eGFR For Non-African Americans > 60 (> 60)
[2021-09-17] MEDS ORDERED: levoFLOXacin 750 MG TABLET PO ONE (00:20)
[2021-09-17 01:00] LABS: ABG Base Excess 0 mEq/L (-2 to 3); ABG HCO3 31 mEq/L (21-27); ABG Oxygen Saturation 89 % (95-98); ABG PCO2 76 mmHg (35-45); ABG PH 7.21 pH Units (7.32-7.45); ABG PO2 70 mmHg (85-104); ABG TCO2 33 mEq/L (20-26)
[2021-09-17 03:01] LABS: ABG Base Excess 1 mEq/L (-2 to 3); ABG HCO3 32 mEq/L (21-27); ABG Oxygen Saturation 90 % (95-98); ABG PCO2 85 mmHg (35-45); ABG PH 7.19 pH Units (7.32-7.45); ABG PO2 75 mmHg (85-104); ABG TCO2 35 mEq/L (20-26)
[2021-09-17 05:50] LABS: ABG Base Excess 1 mEq/L (-2 to 3); ABG HCO3 32 mEq/L (21-27); ABG Oxygen Saturation 92 % (95-98); ABG PCO2 78 mmHg (35-45); ABG PH 7.22 pH Units (7.32-7.45); ABG PO2 81 mmHg (85-104); ABG TCO2 34 mEq/L (20-26)
[2021-09-17] MEDS ORDERED: levoFLOXacin 750 MG/150 ML 750 MG/150 ML BAG IVPB ONE (07:18)
[2021-09-17] MEDS ORDERED: Ipratropium/Albuterol Neb 3 ML IH ONE (09:24)
[2021-09-17] MEDS ORDERED: Ipratropium/Albuterol Neb 3 ML ONE (09:25)
[2021-09-17 09:26] LABS: VBG HCO3 28 mEq/L (21-27); VBG PCO2 54 mmHg (41-51); VBG PH 7.32 pH Units (7.32-7.42); VBG PO2 103 mmHg (25-50)
[2021-09-17] MEDS ORDERED: Nicotine 21 MG PATCH.TD24 TD ONE (10:35)
[2021-09-17] MEDS ORDERED: Acetaminophen 325 MG TABLET PO PRN (11:33)
[2021-09-17] MEDS ORDERED: Ondansetron 4 MG/2 ML VIAL IVP PRN (11:33)
[2021-09-17] MEDS ORDERED: Naloxone 0.4 MG/ML INJ IVP PRN (11:33)
[2021-09-17] MEDS: Ipratropium/Albuterol Neb 3 ML IH SCH ×4 (11:55→23:36)
[2021-09-17 12:05] LABS: Hematocrit 40.3 % (35.3-44.9); Hemoglobin 12.8 g/dL (11.5-15.4); Mean Corpuscular HGB Conc 31.8 g/dL (31.6-35.5); Mean Corpuscular Hemoglobin 30.4 pg (28.0-33.3); Mean Corpuscular Volume 95.7 fL (83.0-100.0); Mean Platelet Volume 9.3 fL (9.4-12.4); Platelet Count 217 K/mcL (140-400); Red Blood Count 4.21 M/mcL (3.82-4.97); Red Cell Distribution Width 13.9 % (11.5-14.5); White Blood Count 6.8 K/mcL (4.3-11.1)
[2021-09-17] MEDS ORDERED: Nitroglycerin 0.4 MG TAB.SUBL SL PRN (12:05)
[2021-09-17] MEDS ORDERED: Dextrose Gel 15 GM/37.5 ML TUBE PO PRN ×2 (12:07)
[2021-09-17] MEDS ORDERED: D5% in Water 1,000 ML IVC PRN (12:07)
[2021-09-17] MEDS ORDERED: *HR* Dextrose 50 % in Water (Syg) 50 ML SYRINGE IVP PRN (12:07)
[2021-09-17] MEDS ORDERED: Acetaminophen/Butalbital/CaffeineTABLET PO PRN (12:10)
[2021-09-17] MEDS ORDERED: Ergocalciferol (VIT D2) 50,000 UNIT (1.25MG) CAP PO SCH ×3 (12:15→14:00)
[2021-09-17 12:25] LABS: BUN/Creatinine Ratio 21 (6-26); Blood Urea Nitrogen 12 mg/dL (8-23); Calcium 9.3 mg/dL (8.6-10.3); Carbon Dioxide 28 mEq/L (23-29); Chloride 103 mEq/L (98-107); Glucose 140 mg/dL (70-105); Osmolality,Calculated 284 (280-300); Potassium 4.2 mEq/L (3.5-5.1); Sodium 136 mEq/L (136-145); eGFR For African Americans > 60 (> 60); eGFR For Non-African Americans > 60 (> 60)
[2021-09-17] MEDS ORDERED: *HR* HYDROcodone/Acet 5/325 mg TABLET PO PRN (13:13)
[2021-09-17] MEDS: Gabapentin 400 MG CAPSULE PO SCH ×2 (15:17→21:20)
[2021-09-17] MEDS: MethylPREDNISolone 40 MG/ML VIAL IVP SCH (15:17)
[2021-09-17 15:31] LABS: Adenovirus Not Detected (Not Detect); Bordetella Pertussis Not Detected (Not Detect); Chlamydophila pneumoniae Not Detected (Not Detect); Coronavirus 229E Not Detected (Not Detect); Coronavirus HKU1 Not Detected (Not Detect); Coronavirus NL63 Not Detected (Not Detect); Coronavirus OC43 Not Detected (Not Detect); Human Metapneumovirus Not Detected (Not Detect); Human Rhinovirus/Enterovirus Not Detected (Not Detect); Influenza A Subtype 2009 H1 Not Detected (Not Detect); Influenza B Not Detected (Not Detect); Mycoplasma pneumoniae Not Detected (Not Detect); Parainfluenza Virus 1 Not Detected (Not Detect); Parainfluenza Virus 2 Not Detected (Not Detect); Parainfluenza Virus 3 Not Detected (Not Detect); Parainfluenza Virus 4 Not Detected (Not Detect); Respiratory Syncytial Virus Not Detected (Not Detect); SARS-CoV-2 Not Detected (Not Detect)
[2021-09-17] MEDS: Insulin LISPRO 300 UNITS/3 ML VIAL SUBQ SCH (16:53)
[2021-09-17] MEDS: Budesonide/Formoterol 160/4.5 1 PUFF INH IH SCH (19:59)
[2021-09-17] MEDS: QUEtiapine Fumarate 25 MG TABLET PO SCH (21:20)
[2021-09-17] MEDS: *HR* Buprenorphine HCl 2 MG SUBLINGUAL TABLET SL SCH ×2 (21:20→21:29)
[2021-09-18] MEDS: MethylPREDNISolone 40 MG/ML VIAL IVP SCH ×3 (00:25→17:14)
[2021-09-18] MEDS: Ipratropium/Albuterol Neb 3 ML IH SCH ×5 (03:37→20:02)
[2021-09-18] MEDS: *HR* Enoxaparin 40 MG/0.4 ML SYRINGE SQ SCH (05:35)
[2021-09-18 05:45] LABS: Hematocrit 40.7 % (35.3-44.9); Hemoglobin 12.8 g/dL (11.5-15.4); Mean Corpuscular HGB Conc 31.4 g/dL (31.6-35.5); Mean Corpuscular Hemoglobin 30.4 pg (28.0-33.3); Mean Corpuscular Volume 96.7 fL (83.0-100.0); Mean Platelet Volume 9.4 fL (9.4-12.4); Platelet Count 228 K/mcL (140-400); Red Blood Count 4.21 M/mcL (3.82-4.97); Red Cell Distribution Width 14.1 % (11.5-14.5); White Blood Count 8.8 K/mcL (4.3-11.1)
[2021-09-18 06:15] LABS: BUN/Creatinine Ratio 19 (6-26); Blood Urea Nitrogen 11 mg/dL (8-23); Calcium 9.5 mg/dL (8.6-10.3); Carbon Dioxide 33 mEq/L (23-29); Chloride 103 mEq/L (98-107); Glucose 166 mg/dL (70-105); Osmolality,Calculated 293 (280-300); Potassium 4.2 mEq/L (3.5-5.1); Sodium 140 mEq/L (136-145); eGFR For African Americans > 60 (> 60); eGFR For Non-African Americans > 60 (> 60)
[2021-09-18] MEDS: Budesonide/Formoterol 160/4.5 1 PUFF INH IH SCH ×2 (08:40→20:02)
[2021-09-18] MEDS: levoFLOXacin 750 MG/150 ML 750 MG/150 ML BAG IVPB SCH (09:04)
[2021-09-18] MEDS: *HR* Buprenorphine HCl 2 MG SUBLINGUAL TABLET SL SCH ×2 (09:06→20:26)
[2021-09-18] MEDS: Furosemide 20 MG TABLET PO SCH (09:07)
[2021-09-18] MEDS: Cholecalciferol (D-3) 1,000 UNIT (25MCG) TABLET PO SCH (09:07)
[2021-09-18] MEDS: risperiDONE 1 MG TABLET PO SCH (09:07)
[2021-09-18] MEDS: Gabapentin 400 MG CAPSULE PO SCH ×3 (09:07→20:20)
[2021-09-18] MEDS: Insulin LISPRO 300 UNITS/3 ML VIAL SUBQ SCH ×3 (09:08→17:15)
[2021-09-18] MEDS: Nicotine 21 MG PATCH.TD24 TD SCH (09:08)
[2021-09-18 10:45] LABS: Estimated Average Glucose 134 mg/dl; Hemoglobin A1C 6.3 %
[2021-09-18] MEDS: QUEtiapine Fumarate 25 MG TABLET PO SCH (20:21)
[2021-09-19] MEDS: Ipratropium/Albuterol Neb 3 ML IH SCH ×7 (00:05→23:58)
[2021-09-19] MEDS: MethylPREDNISolone 40 MG/ML VIAL IVP SCH ×3 (00:11→17:11)
[2021-09-19] MEDS: *HR* Enoxaparin 40 MG/0.4 ML SYRINGE SQ SCH (05:23)
[2021-09-19 05:37] LABS: Hematocrit 39.2 % (35.3-44.9); Hemoglobin 12.3 g/dL (11.5-15.4); Mean Corpuscular HGB Conc 31.4 g/dL (31.6-35.5); Mean Corpuscular Hemoglobin 30.2 pg (28.0-33.3); Mean Corpuscular Volume 96.3 fL (83.0-100.0); Mean Platelet Volume 9.3 fL (9.4-12.4); Platelet Count 255 K/mcL (140-400); Red Blood Count 4.07 M/mcL (3.82-4.97); Red Cell Distribution Width 14.2 % (11.5-14.5); White Blood Count 11.5 K/mcL (4.3-11.1)
[2021-09-19 06:00] LABS: BUN/Creatinine Ratio 28 (6-26); Blood Urea Nitrogen 17 mg/dL (8-23); Calcium 9.6 mg/dL (8.6-10.3); Carbon Dioxide 36 mEq/L (23-29); Chloride 101 mEq/L (98-107); Glucose 154 mg/dL (70-105); Magnesium 2.2 mg/dL (1.6-2.6); Osmolality,Calculated 295 (280-300); Potassium 4.4 mEq/L (3.5-5.1); Sodium 140 mEq/L (136-145)
[2021-09-19] MEDS: Furosemide 20 MG TABLET PO SCH (08:29)
[2021-09-19] MEDS: Gabapentin 400 MG CAPSULE PO SCH ×3 (08:29→21:00)
[2021-09-19] MEDS: risperiDONE 1 MG TABLET PO SCH (08:29)
[2021-09-19] MEDS: Cholecalciferol (D-3) 1,000 UNIT (25MCG) TABLET PO SCH (08:29)
[2021-09-19] MEDS: Insulin LISPRO 300 UNITS/3 ML VIAL SUBQ SCH ×3 (08:30→17:16)
[2021-09-19] MEDS: *HR* Buprenorphine HCl 2 MG SUBLINGUAL TABLET SL SCH ×2 (08:30→20:58)
[2021-09-19] MEDS: Nicotine 21 MG PATCH.TD24 TD SCH (08:30)
[2021-09-19] MEDS: levoFLOXacin 750 MG/150 ML 750 MG/150 ML BAG IVPB SCH (08:31)
[2021-09-19] MEDS: Budesonide/Formoterol 160/4.5 1 PUFF INH IH SCH ×2 (08:57→20:38)
[2021-09-19] MEDS: QUEtiapine Fumarate 25 MG TABLET PO SCH (21:01)
[2021-09-20] MEDS: MethylPREDNISolone 40 MG/ML VIAL IVP SCH ×3 (00:38→14:59)
[2021-09-20] MEDS: Ipratropium/Albuterol Neb 3 ML IH SCH ×3 (03:52→11:36)
[2021-09-20] MEDS: Budesonide/Formoterol 160/4.5 1 PUFF INH IH SCH (06:20)
[2021-09-20] MEDS: *HR* Enoxaparin 40 MG/0.4 ML SYRINGE SQ SCH (06:47)
[2021-09-20] MEDS: levoFLOXacin 750 MG/150 ML 750 MG/150 ML BAG IVPB SCH (09:10)
[2021-09-20] MEDS: Nicotine 21 MG PATCH.TD24 TD SCH (09:11)
[2021-09-20] MEDS: risperiDONE 1 MG TABLET PO SCH (09:12)
[2021-09-20] MEDS: Gabapentin 400 MG CAPSULE PO SCH ×2 (09:12→14:58)
[2021-09-20] MEDS: Furosemide 20 MG TABLET PO SCH (09:13)
[2021-09-20] MEDS: Cholecalciferol (D-3) 1,000 UNIT (25MCG) TABLET PO SCH (09:13)
[2021-09-20] MEDS: *HR* Buprenorphine HCl 2 MG SUBLINGUAL TABLET SL SCH (09:13)
[2021-09-20] MEDS: Insulin LISPRO 300 UNITS/3 ML VIAL SUBQ SCH ×2 (09:14→12:07)
[2021-09-20 11:16] VITALS: BP 142/86; PULSE 76; TEMP 98.4
[2021-09-20 11:40] VITALS: RESP 19; O2SAT 94
== END 2021-09-20 16:48 | disposition home or self-care (01) | DRG 871 ==
LOC: EMEROOGRE 22:15 → INPGRE 09-17 11:51
PROVIDERS: ADMIT Family Medicine; ATTEND Family Medicine